=== PATIENT | female | born 1950 | race Caucasian/White ===

== ENCOUNTER → 2018-04-29 | Outpatient (CLI) | payer OTHER ==
[~2018-04-29] VITALS: Ht 152.4 cm; Wt 81.6 kg
[~2018-04-29] MED LIST: AMARYL4 MG PO; FENOFIBRATE160 MG PO; JANUVIA50 MG PO; LISINOPRIL-HCT1 EAC2 PO; LUMIGAN2.5 M1 OTIC; PIOGLITAZONE15 MG; SIMVASTATIN40 MG PO
--- NOTE | ~2018-04-29 | EKG ---
[address] [address] ELECTROCARDIOGRAM REPORT Name: JUANNEO Room #: REG HEYDI Beckwith#: [id number] Admission: 04/29/18 Attend Phys: Jovany Salgado Discharge: Date of : 48 Report #: [id number] THIS REPORT FOR: //name// [facility] Test Date: 2018-04-29 Test Time: 08:13:09 Pat Name: NEO MARTINEZ Department: Room: Gender: F Medical Radiation Therapist: : 1950 Requested By: Jovany Salgado Order Number: [id number] MD: Micha Garcia Measurements Intervals [place] Rate: 61 P: 49 DE: 132 QRS: 53 QRSD: 88 T: 45 QT: 404 QTc: 407 Interpretive Statements Sinus rhythm Normal No previous ECG available for comparison Electronically Signed On 04-29-2018 14:43:12 COMBINE OPERATOR by Micha Garcia [email or web address] <ELECTRONICALLY SIGNED> By: Micha Garcia MD, [facility] 04/29/18 1443 0813 08 Micha Garcia MD, FACC /EPI
[2018-04-29 08:19] VITALS: BP 145/61
[2018-04-29 08:26] LABS: HEMATOCRIT 36.8 % (37.0-47.0); MCH 28.7 pg (26.0-34.0); MCHC 32.5 g/dL (28.0-37.0); MCV 88.1 fL (80.0-100.0); RBC 4.17 mil/uL (4.20-5.00); RDW 14.2 % (10.5-14.5); WBC 5.6 thou/uL (4.0-11.0)
[2018-04-29 08:35] LABS: CALCIUM 9.5 mg/dL (8.5-10.1); CREATININE 1.4 mg/dL (0.6-1.0); POTASSIUM 4.8 mmol/L (3.5-5.1)
== END | disposition home or self-care (01) ==
LOC: CATH 07:27
PROVIDERS: Internal Medicine
DX: I25.10 Atherosclerotic heart disease of native coronary artery without angina pectoris (principal); I10 Essential (primary) hypertension; E11.9 Type 2 diabetes mellitus without complications; E78.5 Hyperlipidemia, unspecified; K21.9 Gastro-esophageal reflux disease without esophagitis; E03.9 Hypothyroidism, unspecified; F32.9 Major depressive disorder, single episode, unspecified; Z82.49 Family history of ischemic heart disease and other diseases of the circulatory system; Z98.41 Cataract extraction status, right eye; Z98.42 Cataract extraction status, left eye; Z98.890 Other specified postprocedural states; Z79.899 Other long term (current) drug therapy; Z87.440 Personal history of urinary (tract) infections

== ENCOUNTER → 2018-08-05 | Outpatient (CLI) | payer OTHER | LOC: ULTRA 09:01 | DX: R20.0 Anesthesia of skin (principal); S55.99 Other specified injury of unspecified blood vessel at forearm level; I10 Essential (primary) hypertension; E11.9 Type 2 diabetes mellitus without complications; K21.9 Gastro-esophageal reflux disease without esophagitis; E78.5 Hyperlipidemia, unspecified; E78.00 Pure hypercholesterolemia, unspecified; Z96.0 Presence of urogenital implants ==

== ENCOUNTER → 2018-10-21 | Outpatient (CLI) | payer OTHER ==
[~2018-10-21] VITALS: Ht 152.4 cm; Wt 90.7 kg
[~2018-10-21] MED LIST changes: +ISOSORBIDE MONO30 M1 PO; +LISINOPRIL20 MG PO; +NITROSTAT0.4 M1 SUBLING; +TOPROL XL25 MG PO; +TRAVATAN Z2.5 ML OPHTHALMIC; +ZETIA10 MG PO
--- NOTE | ~2018-10-21 | P ---
[facility] [place] [address] [place] [address] PROCEDURE REPORT Name: NEO MARTINEZ [id number] Admission: 10/21/18 ������������������ Attend Phys: Aristeo Avila Discharge: ������������������ Date of : 48 Report #: [id number] THIS REPORT FOR: //name// CC: Aristeo Valle MD DATE OF SERVICE: 10/21/2018 PROCEDURE PERFORMED: Colonoscopy with biopsies. HISTORY OF PRESENT ILLNESS: The patient is a 68-year-old female with a history of anemia. No obvious GI bleed. Reportedly, had a Hemoccult negative stool x one recently. Her hemoglobin in the last few months was 6.1 at one point, then 9 and today is 11.5. 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 Upper endoscopy was just performed today that showed diffuse gastritis, esophagitis, multiple gastric erosions and a few small ulcers. No evidence of active bleeding. Plan is for colonoscopy. The patient reportedly had colon polyps 5 years ago. No family history of colon cancer. DESCRIPTION OF PROCEDURE: The risks and benefits of the procedure were explained to the patient; those risks including, but not limited to bleeding, perforation and the risk of sedation. She understood these risks and gave informed consent. Sedation was given using propofol per anesthesia. Next, a digital rectal exam showed an external hemorrhoid, nonbleeding, otherwise normal. Next, using a standard Olympus colonoscope, the scope was placed in the patient's anus and advanced under direct vision to the cecum. The overall prep was excellent. There was a 3-mm sessile polyp in the cecum. This was removed with cold forceps. Ileocecal valve was normal. In the ascending colon, a 4-mm sessile polyp noted, also removed with cold forceps. A few scattered diverticula in the ascending colon. No evidence of inflammation. The transverse and descending colon were normal. Multiple diverticula noted in the sigmoid colon. No evidence of inflammation. Two 3-mm sessile polyps also noted in the sigmoid colon, both removed by cold forceps. The rectal mucosa was normal. On retroflexion, no abnormalities were noted. The scope was then withdrawn and the procedure terminated. The patient tolerated the procedure well. IMPRESSION: 1. Four small colonic polyps. 2. Diverticulosis, without evidence of inflammation. 3. External hemorrhoids, nonbleeding. 4. Otherwise, normal colonoscopy. [address] [address] PROCEDURE REPORT Name: NEO MARTINEZ Room #: REG HEYDI Beckwith#: [id number] Admission: 10/21/18 ������������������ Attend Phys: Aristeo Avila Discharge: ������������������ Date of : 48 Report #: [id number] RECOMMENDATIONS: 1. Await biopsy results. 2. If polyps are hyperplastic, repeat colonoscopy in 10 years; if adenoma, repeat in 5 years. 3. No evidence of active bleeding today on EGD or colonoscopy. However, the patient had multiple erosions and a few small ulcers in her stomach. I suspect when the patient was on aspirin several months ago, these could have been worse, which was the cause of the anemia. Her anemia has improved significantly with hemoglobin 11.5. I would recommend long-term PPI therapy, especially if the patient is to be back on aspirin in the future. Thank you for allowing me to participate in her care. ��������������������������������������������� ���������������������������������������� By: ��������������������������������������������� 0918 1235 Aristeo Leung MD /nt
--- NOTE | ~2018-10-21 | P ---
[facility] [place] [address] PROCEDURE REPORT Name: NEO MARTINEZ [facility] [id number] Admission: 10/21/18 ������������������ Attend Phys: Aristeo Avila Discharge: ������������������ Date of : 48 Report #: [id number] THIS REPORT FOR: //name// CC: Aristeo Gibbs DATE OF SERVICE: 10/21/2018 PROCEDURE PERFORMED: Upper endoscopy with biopsies. HISTORY OF PRESENT ILLNESS: The patient is a 68-year-old female with a history of anemia. She denies any obvious bright red blood per rectum or melena, possible history of peptic ulcer disease approximately 5 years ago. The patient was taking aspirin on a daily basis up until 2 months ago. She states her most recent hemoglobin was 6.1; however, later she stated possibly 9 range. Today's hemoglobin is 11.5. She denies any heartburn symptoms or dysphagia. No nausea or vomiting. Her weight has been stable. No hematemesis. Plan is for EGD and colonoscopy today. The patient reportedly had a stool Hemoccult test x1 that was negative. DESCRIPTION OF PROCEDURE: The risks and benefits of the procedure were explained to the patient, those risks including but not limited to bleeding, perforation, the risk of sedation. She understood these risks and gave informed consent. Sedation was given using propofol per anesthesia. Next, using a standard Olympus upper endoscope, the scope was placed in the patient's mouth and advanced under direct vision through the esophagus, stomach, and into the second portion of the duodenum. The larynx was normal in appearance. The upper and mid esophagus was normal. In the distal esophagus, grade B erosive esophagitis was noted. No evidence of bleeding, possible short segment of Berkowitz's was also noted. Biopsies were obtained. In the stomach, there was a diffuse gastritis with multiple erosions and a few small clean white based ulcers. No evidence of bleeding. Biopsies were obtained to rule out H. pylori. The pylorus was normal and patent. The duodenal bulb, first and second portion were all normal. Biopsies were also obtained of the duodenum to rule out the possibility of celiac sprue. At this point, the scope was then withdrawn and the procedure terminated. The patient tolerated the procedure well. IMPRESSION: 1. Grade B erosive esophagitis. 2. 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 3. Diffuse gastritis with multiple erosions and a few small ulcers. No evidence of active bleeding. RECOMMENDATIONS: 1. Await biopsy results. [facility] [place] [place] [address] [place] [address] PROCEDURE REPORT Name: DEJA MARTINEZINE Room #: REG [facility] Tang#: [id number] Admission: 10/21/18 ������������������ Attend Phys: Aristeo Avila Discharge: ������������������ Date of : 48 Report #: [id number] 2. Would recommend daily PPI therapy, especially if the patient is going to restart aspirin in the near future. 3. We will proceed with colonoscopy today. Thank you for allowing me to participate in her care. ��������������������������������������������� ���������������������������������������� By: ��������������������������������������������� 0849 1021 Aristeo Leung MD /nt
[2018-10-21 07:57] LABS: HEMATOCRIT 35.1 % (37.0-47.0); HEMOGLOBIN 11.5 gm/dL (12.0-15.0)
--- NOTE | 2018-10-22 16:06 | PATH ---
[facility] [place] [address] PATHOLOGY RPT PROCEDURE Name: NEO MARTINEZ Room #: REG HEYDI RuelasNica.#: [id number] ������������������ Admission: 10/21/18 ������������������ Date of : 48 Discharge: Report #: [id number] Path Case #: [id number] [facility] Accession Number: [id number] . 01 Material submitted: . PART A: duodenum - BIOPSY OF DUODENUM TO RULE OUT SPRUE PART B: gastrointestinal site - BIOPSY OF GASTRITIS TO RULE OUT H PYLORI PART C: esophagus - BIOPSY OF DISTAL ESOPHAGUS TO RULE OUT BARRETTS ESOPHAGUS. Modifiers: distal PART D: cecum - POLYP AT CECUM PART E: colon - POLYP AT ASCENDING COLON. Modifiers: ascending PART F: sigmoid colon - POLYP AT SIGMOD COLON X2 . 01 Clinician provided ICD-10: D64.9 . 01 Clinical history: . Anemia . 02 Diagnosis: A. Small bowel mucosa, duodenum rule out sprue, endoscopic biopsy: - Nonspecific mild chronic inflammation. - Negative for villous blunting or increase in intraepithelial lymphocytes. . B. Gastric mucosa, gastritis rule out H. pylori, endoscopic biopsy: - Mild chronic gastritis with features of reactive gastropathy. - Negative for intestinal metaplasia or atrophy. - Negative for Helicobacter pylori (properly controlled immunohistochemical stain performed). . C. Gastroesophageal mucosa, distal esophagus rule out Berkowitz's, endoscopic biopsy: - Gastric fundic-type mucosa with moderate chronic inflammation and reactive changes. - Negative for intestinal metaplasia or dysplasia. - Squamous mucosa with mild esophagitis and features compatible with reflux esophagitis. . D. Polyp, at cecum, endoscopic biopsy: - Hyperplastic polyp. - Negative for dysplasia. . E. Polyp, at ascending colon, endoscopic biopsy: - Hyperplastic polyp. - Negative for dysplasia. . F. Polyp x2, sigmoid colon, endoscopic biopsy: [facility] [address] [place] [address] PATHOLOGY RPT PROCEDURE Name: NEO MARTINEZ Room #: REG CL M..#: [id number] ������������������ Admission: 10/21/18 ������������������ Date of : 48 Discharge: Report #: [id number] Path Case #: [id number] - Superficial fragments showing changes compatible with hyperplastic polyp. - Negative for dysplasia. . (IUV:stitch burnisher; 10/22/2018) MBR/10/22/2018 . 02 Electronically signed: . Chelsea Weeks MD, Pathologist NPI- [id number] . 01 Gross description: . A. Received in formalin labeled "Ranjeet, Neo, duodenal BX to rule out sprue," are 3 segments of carpenter soft tissue measuring 1.0 x 0.8 x 0.3 cm in aggregate dimensions and ranging from 0.3 to 0.5 cm in maximum dimension. The specimen is submitted entirely in cassette A1. . B. Received in formalin labeled "Juwan Martinezine, BX of gastritis to rule out H. pylori," are 4 segments of carpenter soft tissue measuring 1.1 x 0.8 x 0.2 cm in aggregate dimensions and ranging from 0.2 to 0.5 cm in maximum dimension. The specimen is submitted entirely in cassette B1. . C. Received in formalin labeled "Juwan Martinezine, BX of distal esophagus to rule out Berkowitz's," are 2 segments of carpenter soft tissue measuring 0.7 x 0.2 x 0.2 cm in aggregate dimensions and ranging from 0.3 to 0.4 cm in maximum dimension. The specimen is submitted entirely in cassette C1. . D. Received in formalin labeled "Juwan Martinezine, polyp at cecum," are 2 segments of carpenter soft tissue measuring 0.5 x 0.1 x 0.1 cm in aggregate dimensions and ranging from 0.2 to 0.3 cm in maximum dimension. The specimen is submitted entirely in cassette D1. . E. Received in formalin labeled "Juwan Martinezine, polyp at ascending colon," are 3 segments of carpenter soft tissue measuring 0.8 x 0.6 x 0.1 cm in aggregate dimensions and ranging from 0.1 to 0.3 cm in maximum dimension. The specimen is submitted entirely in cassette E1. . F. Received in formalin labeled "RanjeetJuwanNeo, polyp at sigmoid colon x2," are 4 segments of carpenter soft tissue measuring 0.6 x 0.4 x 0.1 cm in aggregate dimensions and ranging from 0.1 to 0.3 cm in maximum dimension. The specimen is submitted entirely in cassette F1. (TSD; 10/21/2018) TOB/TOB . 02 Pathologist provided ICD-10: K29.80, K29.50, K21.0, K63.[address] [address] PATHOLOGY RPT PROCEDURE Name: NEO MARTINEZ Room #: NERISSA Beckwith#: [id number] ������������������ Admission: 10/21/18 ������������������ Date of : 48 Discharge: Report #: [id number] Path Case #: [id number] . 02 CPT . [id number], [id number], [id number], [id number], [id number], [id number], [id number] Specimen Comment: A courtesy copy of this report has been sent to Specimen Comment: [phone], . Specimen Comment: Report sent to / DR FONG Performed at: [address] [facility], [place] [id number] MD Claudy Jacome MD Phone: [phone] Performed at: [address] [facility] [address] [id number] MD Chelsea Weeks MD Phone: [phone]
== END | disposition home or self-care (01) ==
LOC: GI 07:02
PROVIDERS: Specialist
DX: K63.5 Polyp of colon (principal); K57.30 Diverticulosis of large intestine without perforation or abscess without bleeding; K29.80 Duodenitis without bleeding; K29.50 Unspecified chronic gastritis without bleeding; K21.0 Gastro-esophageal reflux disease with esophagitis; K31.9 Disease of stomach and duodenum, unspecified; K64.4 Residual hemorrhoidal skin tags; I10 Essential (primary) hypertension; E11.9 Type 2 diabetes mellitus without complications; E78.00 Pure hypercholesterolemia, unspecified; N28.9 Disorder of kidney and ureter, unspecified; G47.30 Sleep apnea, unspecified; Z96.653 Presence of artificial knee joint, bilateral; Z98.890 Other specified postprocedural states; Z90.710 Acquired absence of both cervix and uterus; Z98.41 Cataract extraction status, right eye; Z98.42 Cataract extraction status, left eye; Z79.899 Other long term (current) drug therapy; Z88.8 Allergy status to other drugs, medicaments and biological substances
CPT/HCPCS: 62110; 62900

== ENCOUNTER → 2019-06-17 | Outpatient (CLI) | payer OTHER | LOC: RAD 11:30 | DX: M48.05 Spinal stenosis, thoracolumbar region (principal); M54.16 Radiculopathy, lumbar region; I70.0 Atherosclerosis of aorta ==

== ENCOUNTER → 2019-07-05 | Outpatient (CLI) | payer OTHER | LOC: MRI 12:25 | DX: M51.25 Other intervertebral disc displacement, thoracolumbar region (principal); M51.26 Other intervertebral disc displacement, lumbar region; M43.16 Spondylolisthesis, lumbar region; M12.88 Other specific arthropathies, not elsewhere classified, other specified site; M47.816 Spondylosis without myelopathy or radiculopathy, lumbar region ==